=== PATIENT | male | born 1985 | race Caucasian/White ===

== ENCOUNTER 2021-08-24 11:47 | Emergency (ER) | payer OTHER, SELFPAY ==
[2021-08-24 14:03] VITALS: BP 0/0; PULSE 0; RESP 0; TEMP -17.7; TEMP 0
== END 2021-08-24 14:03 | disposition left against medical advice (07) ==
LOC: UTC 11:53
PROVIDERS: Emergency Provider Nurse Practitioner Family
DX: Z53.21 Procedure and treatment not carried out due to patient leaving prior to being seen by health care provider (principal)

== ENCOUNTER 2021-08-31 05:18 | Emergency (ER) | payer OTHER, SELFPAY ==
[2021-08-31 05:19] VITALS: BP 125/85; PULSE 85; RESP 16; TEMP 36.9; O2SAT 95; BMI 24.2
--- NOTE | 2021-08-31 05:30 | CT_ITS ---
PROCEDURE INFORMATION: Exam: CT Abdomen And Pelvis With Contrast Exam date and time: 08/31/2021 5:30 AM Age: 36 years old Clinical indication: Abdominal pain; Localized; Left upper quadrant (luq); Patient HX: Luq pain; Additional info: Ruq pain TECHNIQUE: Imaging protocol: Computed tomography of the abdomen and pelvis with contrast. Radiation optimization: All CT scans at this facility use at least one of these dose optimization techniques: automated exposure control; mA and/or kV adjustment per patient size (includes targeted exams where dose is matched to clinical indication); or iterative reconstruction. Contrast material: ISOVUE; Contrast volume: 75 ml; Contrast route: IV; COMPARISON: ABDPELW CT ABD PELVIS W/ CONTRAST 06/06/2016 6:44 PM FINDINGS: Liver: Normal. No mass. Gallbladder and bile ducts: Normal. No calcified stones. No ductal dilation. Pancreas: Normal. No ductal dilation. Spleen: Normal. No splenomegaly. Adrenal glands: Normal. No mass. Kidneys and ureters: Normal. No hydronephrosis. Stomach and bowel: Unremarkable. No obstruction. No mucosal thickening. Appendix: No evidence of appendicitis. Intraperitoneal space: Unremarkable. No free air. No significant fluid collection. Vasculature: Unremarkable. No abdominal aortic aneurysm. Lymph nodes: Unremarkable. No enlarged lymph nodes. Urinary bladder: Unremarkable as visualized. Reproductive: Unremarkable as visualized. Bones/joints: Unremarkable. No acute fracture. Soft tissues: Unremarkable. IMPRESSION: No acute findings.
[2021-08-31 05:38] LABS: Appearance,Urine CLEAR (Clear); Blood, Urine Negative (Negative); Color,Urine YELLOW (Yellow); Glucose,Urine (UA) Negative (Negative); Ketones,Urine TRACE (Negative); Leukocyte Esterase,Urine Negative (Negative); Microscopic, Urine URINE MICROSCOPIC (MICROSCOPIC); Nitrate,Urine Negative (Negative); PH,Urine 6.5 (5.0-8.5); Protein,Urine Negative (Negative)
[2021-08-31 05:40] LABS: Bilirubin,Urine Negative (Negative)
[2021-08-31 05:57] LABS: Alanine Aminotransferase 25 U/L (12-78); Albumin Level 4.3 g/dl (3.5-5.0); Albumin/Globulin Ratio 1.2 (1.1-1.8); Alkaline Phosphatase 104 U/L (38-126); Amylase 95 U/L (30-110); Anion Gap 13.8 mEq/L (5-15); Aspartate Amino Transferase 28 U/L (17-59); Bilirubin,Total 0.9 mg/dl (0.2-1.3); Blood Urea Nitrogen 16 mg/dl (9-20); Calcium 9.1 mg/dl (8.4-10.2); Carbon Dioxide 24 mmol/L (22.0-30.0); Chloride 104 mmol/L (98-107); Creatinine Clearance Estimated 138 mL/min (50-200); Estimated Glomerular Filt Rate 126 ml/min (>60); GFR (African American) 153 ML/MIN (>60); Globulin 3.6 g/dL (1.3-3.2); Glucose 109 mg/dl (74-100); Lipase 135 U/L (23-300); Potassium 3.8 mmoL/L (3.5-5.1); Sodium 138 mmol/L (136-145); Total Protein,Serum 7.9 g/dl (6.3-8.2)
[2021-08-31 06:02] LABS: C-Reactive Protein 5.8 mg/L (0-4)
[2021-08-31 06:15] LABS: Erythrocyte Sedimentation Rate 4 mm/hr (0-15)
[2021-08-31 06:16] LABS: Procalcitonin 0.058 ng/mL (0.0-2.0)
[2021-08-31 06:28] LABS: Basophils # 0.1 K/mm3 (0-0.2); Basophils % 1.1 % (0.1-2.0); Eosinophils # 0.1 K/mm3 (0.0-0.4); Hematocrit 53.3 % (42.0-52.0); Lymphocytes # 1.6 K/mm3 (0.7-4.5); Lymphocytes % 16.9 % (10-50); Mean Corpuscular Hemoglobin 35.6 pg (27.0-31.2); Mean Corpuscular Volume 104.7 fl (80-94); Mean Platelet Volume 8.2 fl (7.4-10.4); Monocytes # 0.3 K/mm3 (0.1-1.0); Monocytes % 3.1 % (1.7-9.3); Neutrophils # 7.4 K/mm3 (1.8-7.8); Neutrophils % 77.8 % (37.0-80.0); Platelet Count 429 K/mm3 (142-424); Red Blood Count 5.09 M/mm3 (4.60-6.20); Red Cell Distribution Width 16.2 % (11.5-17.5); White Blood Count 9.6 K/mm3 (4.8-10.8)
[2021-08-31 06:28] LABS: Bacteria,Urine 1+ /lpf
[2021-08-31 06:34] LABS: Hemoglobin 19.5 g/dL (14.1-18.0)
--- NOTE | 2021-08-31 06:57 | [facility].EDNVD ---
ED Disposition Clinical Impression: Polycythemia vera Abdominal pain Qualifiers: Abdominal location: left upper quadrant Qualified Code(s): R10.12 - Left upper quadrant pain Disposition: Home, Self-Care Condition on Discharge: Good Instructions: DI for Acute Abdominal Pain Additional Instructions: fluids and call pcp for follow up Referrals: Provider,Referral, [Primary Care Provider] - - Critical Care Critical Care Time: No Attestation: On 08/31/21, the high probability of a clinically significant, sudden or life threatening deterioration of the following system(s) required my full and direct attention, intervention and personal management. The time I documented below is in addition to time spent performing reported procedures but includes the following listed in this critical care notation. Medical Decision Making - Medical Records Medical records reviewed: Yes: I reviewed the patient's medical records. - John Inquiry Pt receiving controlled substance: No Vital Signs: 08/31/21 05:19 Temperature 98.4 F Temperature Source Oral Pulse Rate [Right] 85 Respiratory Rate 16 Blood Pressure [Right Arm] 125/85 Blood Pressure Mean [Right Arm] 98 02 Sat by Pulse Oximetry 95 - Lab Data Lab results reviewed: Yes: I reviewed the patient's lab results. Lab Results 08/31/21 05:24: Urine Color Yellow, Urine Appearance Clear, Urine pH 6.5, Ur Specific [place] 1.020, Urine Protein Negative, Urine Glucose (UA) Negative, Urine Ketones Trace, Urine Blood Negative, Urine Nitrate Negative, Urine Bilirubin Negative, Urine Urobilinogen 2.0, Ur Leukocyte Esterase Negative, Urine WBC 3-5, Urine Bacteria 1+ 08/31/21 05:35: WBC 9.6, RBC 5.09, Hgb 19.5 H, Hct 53.3 H, MCV 104.7 H, MCH 35.6 H, MCHC 34.0, RDW 16.2, Plt Count 429 H, MPV 8.2, Neut % (Auto) 77.8, Lymph % (Auto) 16.9, [place] % (Auto) 3.1, Eos % (Auto) 1.0, Baso % (Auto) 1.1, Neut # (Auto) 7.4, Lymph # (Auto) 1.6, [place] # (Auto) 0.3, Eos # (Auto) 0.1, Baso # (Auto) 0.1, ESR 4 08/31/21 05:35: Sodium 138, Potassium 3.8, Chloride 104, Carbon Dioxide 24, Anion Gap 13.8, BUN 16, Creatinine 0.70, Estimated Creat Clear 138, Estimated GFR 126, Est GFR ( Amer) 153, Glucose 109 H, Calcium 9.1, Total Bilirubin 0.9, AST 28, ALT 25, Alkaline Phosphatase 104, C-Reactive Protein 5.8 H, Total Protein 7.9, Albumin 4.3, Globulin 3.6 H, Albumin/Globulin Ratio 1.2, Amylase 95, Lipase 135, Procalcitonin 0.058 Result diagrams: 08/31/21 05:35 08/31/21 05:35 Orders (Tests/Meds): ED MEDICATIONS Discontinued Medications Generic Name Dose Route Start Last Admin Trade Name Freq PRN Reason Stop Dose Admin Sodium Chloride 1,000 mls @ 999 mls/hr 08/31/21 05:45 08/31/21 06:06 Sod Chlor 0.9% 1000ml Bag IV 08/31/21 06:45 999 mls/hr .Q1H1M AYLA Administration Iopamidol 75 ml 08/31/21 06:31 08/31/21 06:32 Iopamidol-370 (76%);100ml Bottle IV 08/31/21 06:32 75 ml ONCE ONE Administration Ketorolac Tromethamine 30 mg 08/31/21 05:32 08/31/21 06:06 Ketorolac 30mg/Ml Vial IV 08/31/21 05:33 30 mg ONCE ONE Administration Ondansetron HCl 4 mg 08/31/21 05:32 08/31/21 06:06 Ondansetron 4mg/2ml Vial IV 08/31/21 05:33 4 mg ONCE ONE Administration Sodium Chloride 10 ml 08/31/21 06:31 08/31/21 06:32 Sodium Chloride 0.9% 10ml Syr (Rad Only) IV 08/31/21 06:32 10 ml ONCE ONE Administration ORDERS Category Date Time Status CXR 2 view (NOT portable) [XR chest 2V] Stat Exams 08/31/21 06:59 Taken Urine Culture Stat Micro 08/31/21 07:03 Ordered - Radiology Data #1 Image(s): Chest Image Reviewed: Yes I have reviewed radiologist's interpretation Preliminary Findings: Normal/NAD - CT Data CT Scan: Abdomen, Pelvis Time Received: 08:[address] Reviewed: Yes: I have viewed the radiologist's interpretation Preliminary Findings: Normal/NAD Medical Decision Narrative: has pain lt side but no rash and stable labs and xrays Nausea/
--- NOTE | 2021-08-31 06:59 | XR_ITS ---
PROCEDURE INFORMATION: Exam: XR Chest Exam date and time: 08/31/2021 6:59 AM Age: 36 years old Clinical indication: Shortness of breath; Patient HX: Cough, SOA; Additional info: SOB TECHNIQUE: Imaging protocol: XR of the chest. Views: 2 views. COMPARISON: CR CXR CHEST(2 VIEWS-NOT PORTABLE) 06/06/2016 7:02 PM FINDINGS: Lungs: Unremarkable. No consolidation. Pleural spaces: Unremarkable. No pleural effusion. No pneumothorax. Heart/Mediastinum: Unremarkable. No cardiomegaly. Bones/joints: Unremarkable. IMPRESSION: No acute findings.
--- NOTE | 2021-08-31 07:03 | PC.NURSE ---
radiology notified of CXR added on.
[2021-08-31 10:23] VITALS: BP 125/85; PULSE 85; RESP 16; TEMP 36.8; O2SAT 95
== END 2021-08-31 10:28 | disposition home or self-care (01) ==
PROVIDERS: Emergency Provider Emergency Medicine
DX: R10.12 Left upper quadrant pain (principal); F17.210 Nicotine dependence, cigarettes, uncomplicated
CPT/HCPCS: 71046; 74177; 80053; 81001; 82150; 83690; 84145; 85025; 85651; 86140; 87086; 96365; 96375; 99283; J2405; Q9967